=== PATIENT | male | born 1985 | race Caucasian/White ===

== ENCOUNTER → 2024-09-06 | Outpatient (CLI) | payer BC ==
[2024-09-06 15:42] LABS: BASO % 0.7 % (0.0-1.0); EOS # 0.1 10^3/uL (0.0-0.5); EOS % 2.9 % (0.0-3.0); HEMATOCRIT 45.1 % (42.0-52.0); LYMPH % 23.6 % (24.0-44.0); MEAN CORPUSCULAR HEMOGLOBIN 29.6 pg (27.0-33.0); MEAN CORPUSCULAR HGB CONC 35.5 g/dl (32.0-36.5); MEAN CORPUSCULAR VOLUME 83.5 fl (80.0-96.0); MONO # 0.5 10^3/uL (0.0-0.8); NEUTROPHILS # 2.5 10^3/uL (1.5-8.5); NEUTROPHILS % 60.6 % (36.0-66.0); PLATELET COUNT, AUTOMATED 225 10^3/uL (150-450); WHITE BLOOD COUNT 4.2 10^3/uL (4.0-10.0)
[2024-09-06 16:17] LABS: ALBUMIN 4.3 G/DL (3.2-5.2); ALKALINE PHOSPHATASE 90 U/L (40-129); ALT/SGPT 64 U/L (7.0-40); AST/SGOT 30 U/L (<34); BILIRUBIN,DIRECT 0.2 MG/DL (<0.4); BILIRUBIN,TOTAL 0.5 MG/DL (0.3-1.2); CALCIUM LEVEL 9.3 MG/DL (8.5-10.1); CREATININE FOR GFR 1.12 MG/DL (0.70-1.30); GLOMERULAR FILTRATION RATE > 60.0 (>60); TOTAL PROTEIN 7.9 G/DL (5.7-8.2)
== END ==
LOC: M PLALAB 12:27
PROVIDERS: ATTEND Nurse Practitioner Adult Health
DX: R91.8 Other nonspecific abnormal finding of lung field (principal)

== ENCOUNTER → 2024-09-14 | Outpatient (CLI) | payer BC | LOC: M CARPUL 14:15 → EDUNIT# 15:00 | PROVIDERS: ATTEND Nurse Practitioner Adult Health | DX: R91.8 Other nonspecific abnormal finding of lung field (principal) ==

== ENCOUNTER 2024-11-01 08:31 | Day surgery (SDC) | payer BC ==
[~2024-11-01] VITALS: Ht 180.3 cm; Wt 119.7 kg
[2024-11-01] MEDS ORDERED: propofoL 200 MG/20 ML VIAL As Ordered ONE (08:39)
[2024-11-01] MEDS ORDERED: fentaNYL 100 MCG/2 ML INJECTION As Ordered ONE (08:39)
[2024-11-01] MEDS ORDERED: LIDOCAINE 2% 100MG/5ML SDV (FOR ANES.) As Ordered ONE (08:39)
[2024-11-01] MEDS ORDERED: ROCURONIUM BROMIDE 50MG/5ML VIAL As Ordered ONE (08:39)
[2024-11-01] MEDS ORDERED: MIDAZOLAM INJ 2MG/2ML VIAL As Ordered ONE (08:40)
[2024-11-01] MEDS ORDERED: LR 1,000 ML IV SCH ×2 (09:10→11:30)
[2024-11-01] MEDS ORDERED: SUGAMMADEX SODIUM 500 MG/5 ML VIAL (BRIDION) As Ordered ONE (11:19)
[2024-11-01] MEDS ORDERED: ONDANSETRON 4MG 2ML VIAL As Ordered ONE (11:19)
[2024-11-01] MEDS ORDERED: KETOROLAC 30 MG/ML 1ML VIAL As Ordered ONE (11:19)
[2024-11-01] MEDS: EPINEPHrine 1MG/10ML SYRINGE 1.5IN As Ordered ONE (11:27)
[2024-11-01] MEDS: CETACAINE SPRAY 5GM As Ordered ONE (11:27)
[2024-11-01] MEDS: THROMBIN 5,000 UNITS VIAL As Ordered ONE (11:27)
[2024-11-01] MEDS ORDERED: fentaNYL 100 MCG/2 ML INJECTION IV PRN (11:30)
[2024-11-01] MEDS ORDERED: HYDROMORPHONE HCL 0.5 MG/ 0.5 ML SYRINGE IV PRN (11:30)
[2024-11-01] MEDS ORDERED: oxyCODONE 5MG TAB PO PRN (11:30)
[2024-11-01] MEDS ORDERED: ONDANSETRON 4MG 2ML VIAL IV PRN (11:30)
[2024-11-01 12:40] VITALS: BP 121/77; TEMP 97.6; O2SAT 96
== END 2024-11-01 12:55 | disposition home or self-care (01) ==
LOC: M SDC 08:31
PROVIDERS: ATTEND Internal Medicine Pulmonary Disease
DX: I88.8 Other nonspecific lymphadenitis (principal); G47.33 Obstructive sleep apnea (adult) (pediatric)
CPT/HCPCS: 31652; 88173; 88305; J1100; J1885; J2250; J2405; J3010